=== PATIENT | male | born 1995 | race Caucasian/White ===

== ENCOUNTER 2018-07-23 10:00 | Emergency (ER) | payer MEDICAID ==
[~2018-07-23] VITALS: Ht 177.8 cm; Wt 136.0 kg
[2018-07-23] MEDS ORDERED: SILVER SULFADIAZINE 1% CREAM 50GM TOP SCH (11:45)
[2018-07-23] MEDS ORDERED: TETANUS, DIPHTHERIA, PERTUSSIS VAC/PF 0.5ML (>7YR OLD) IM ONE (11:45)
[2018-07-23 12:09] VITALS: BP 130/84
== END 2018-07-23 12:10 | disposition home or self-care (01) ==
LOC: ER 10:39
DX: T22.112A Burn of first degree of left forearm, initial encounter (principal); T31.0 Burns involving less than 10% of body surface; X16.XXXA Contact with hot heating appliances, radiators and pipes, initial encounter; Y93.G3 Activity, cooking and baking; Y92.090 Kitchen in other non-institutional residence as the place of occurrence of the external cause; Y99.0 Civilian activity done for income or pay; Z23 Encounter for immunization
CPT/HCPCS: 16000; 90471; 90715; 99284